=== PATIENT | female | born 1970 | race Caucasian/White ===

== ENCOUNTER 2019-01-12 17:48 | Emergency (ER) | payer OTHER ==
[2019-01-12 18:03] VITALS: BP 153/100; PULSE 105
--- NOTE | 2019-01-12 18:09 | EDM.PDOC ---
ED HPI GENERAL MEDICAL PROBLEM - General Chief Complaint: Lower Extremity Injury/Pain Stated Complaint: RT FOOT INJURY Time Seen by Provider: 01/12/19 18:09 Source of Information: Reports: Patient - History of Present Illness INITIAL COMMENTS - FREE TEXT/NARRATIVE: HISTORY AND PHYSICAL: History of present illness: Patient dropped a brick on her left foot 2 hours prior to arrival she has her own crutches unable to bear weight due to pain no other injury no fever nausea vomiting chills sweats ] There is no abrasion on the dorsum of her foot superficial consistent with injury neurovascularly intact Review of systems: As per history of present illness and below otherwise all systems reviewed and negative. Past medical history: As per history of present illness and as reviewed below otherwise noncontributory. Surgical history: As per history of present illness and as reviewed below otherwise noncontributory. Social history: No reported history of drug or alcohol abuse. Family history: As per history of present illness and as reviewed below otherwise noncontributory. Physical exam: HEENT: Atraumatic, normocephalic, pupils reactive, negative for conjunctival pallor or scleral icterus, mucous membranes moist, throat clear, neck supple, nontender, trachea midline. Lungs: Clear to auscultation, breath sounds equal bilaterally, chest nontender. Heart: S1S2, regular, negative for clicks, rubs, or JVD. Abdomen: Soft, nondistended, nontender. Negative for masses or hepatosplenomegaly. Negative for costovertebral tenderness. Pelvis: Stable nontender. Genitourinary: Deferred. Rectal: Deferred. Extremities: Atraumatic, negative for cords or calf pain. Neurovascular unremarkable. Neuro: Awake, alert, oriented. Cranial nerves II through XII unremarkable. Cerebellum unremarkable. Motor and sensory unremarkable throughout. Exam nonfocal. Diagnostics: [Foot 3 views ] Therapeutics: Toradol 60 IM [ tetanus status is updated Rest ice ibuprofen Neosporin bandaging Tramadol Cam boot crutches nonweightbearing ] Impression: [ left foot injury Superficial abrasion ] Definitive disposition and diagnosis as appropriate pending reevaluation and review of above. Left foot Pain Score (Numeric/FACES): 6 - Related Data Allergies Allergy/AdvReac Type Severity Reaction Status Date / Time Sulfa (Sulfonamide Allergy Vomiting Verified 01/12/19 18:00 Antibiotics) aspirin Allergy Vomiting Uncoded 01/12/19 18:00 sulfa Allergy Vomiting Uncoded 01/12/19 18:00 Home Meds: Home Meds Levothyroxine Sodium [Synthroid] 100 mcg PO DAILY 12/14/15 [History] Past Medical History - Past Health History Medical/Surgical History: Denies Medical/Surgical History HEENT History: Reports: None Cardiovascular History: Reports: None Respiratory History: Reports: None Genitourinary History: Reports: None Other EVENT ORGANIZER History: ceasarian Musculoskeletal History: Reports: None Neurological History: Reports: None Psychiatric History: Reports: None Hematologic History: Reports: None Immunologic History: Reports: None Oncologic (Cancer) History: Reports: None Dermatologic History: Reports: None - Infectious Disease History Infectious Disease History: Reports: None - Past Surgical History GI Surgical History: Reports: Other (See Below) Female Surgical History: Reports: Section Other Endocrine Surgeries/Procedures: thyroid surgery Social & Family History - Family History Family Medical History: Noncontributory - Tobacco Use Smoking Status *Q: Current Every Day Smoker Years of Tobacco use: 30 Packs/Tins Daily: 1 - Recreational Drug Use Recreational Drug Use: No Review of Systems - Review of Systems Review Of Systems: See Below ED EXAM, GENERAL - Physical Exam Exam: See Below Course - Vital Signs Last Recorded V/S: Last Vital Signs Temp 97.4 F 01/12/19 18:01 Pulse 105 H 01/12/19 18:01 Resp 16 01/12/19 18:01 BP 153/100 H 01/12/19 18:01 Pulse Ox 100 01/12/19 18:01 - Orders/Labs/Meds Orders: Active Orders 24 hr Category Date Time Status Vaccines to be Administered [RC] PER UNIT ROUTINE Care 01/12/19 18:15 Active Meds: Medications Discontinued Medications Generic Name Dose Route Start Last Admin Trade Name Freq PRN Reason Stop Dose Admin Diphtheria/Tetanus/Acell Pertussis 0.5 ml 01/12/19 18:15 Adacel IM 01/12/19 18:16 .ONCE ONE Ketorolac Tromethamine 60 mg 01/12/19 18:29 Toradol IM 01/12/19 18:30 ONETIME ONE Departure - Departure Time of Disposition: 19:10 Disposition: Home, Self-Care 01 Condition: Good Clinical Impression: Injury of left foot - Discharge Information Referrals: PCP,Unknown [Primary Care Provider] - Forms: ED Department Discharge Additional Instructions: caM boot crutches nonweightbearing Rest ice ibuprofen bacitracin Telfa dressing standard wound care instruction Medication as prescribed follow up with orthopedist, call phone number below to schedule appropriate follow-up [facility] [address], [address] [place] [address] my orthopedic The following information is given to patients seen in the emergency department who are being discharged to home. This information is to outline your options for follow-up care. We provide all patients seen in our emergency department with a follow-up referral. The need for follow-up, as well as the timing and circumstances, are variable depending upon the specifics of your emergency department visit. If you don't have a primary care physician on staff, we will provide you with a referral. We always advise you to contact your personal physician following an emergency department visit to inform them of the circumstance of the visit and for follow-up with them and/or the need for any referrals to a consulting specialist. The emergency department will also refer you to a specialist when appropriate. This referral assures that you have the opportunity for follow-up care with a specialist. All of these measure are taken in an effort to provide you with optimal care, which includes your follow-up. Under all circumstances we always encourage you to contact your private physician who remains a resource for coordinating your care. When calling for follow-up care, please make the office aware that this follow-up is from your recent emergency room visit. If for any reason you are refused follow-up, please contact the [facility] emergency department at and asked to speak to the emergency department charge nurse. - My Orders Last 24 Hours: My Active Orders 01/12/19 18:15 Vaccines to be Administered [RC] PER UNIT ROUTINE - Assessment/Plan Last 24 Hours: My Active Orders 01/12/19 18:15 Vaccines to be Administered [RC] PER UNIT ROUTINE
[2019-01-12] MEDS ORDERED: Diphtheria,Pertussis(Acell),Tetanus Vaccine 0.5 ML Syringe IM ONE (18:15)
[2019-01-12] MEDS ORDERED: Ketorolac 60 MG/2 ML SDV IM ONE (18:29)
--- NOTE | 2019-01-12 18:44 | CR ---
Indication: Dropped brick on foot. Technique: Three views of the right foot were obtained. Comparison: None Findings: A bipartite lateral sesamoid bone is identified. The joint spaces are well maintained. No acute fracture or subluxation is identified. Impression: No acute fracture. Dictated by Angelika Santana MD @ Jan 12 2019 6:42PM Signed by Dr. Angelika Santana @ Jan 12 2019 6:42PM
== END 2019-01-12 19:16 | disposition home or self-care (01) ==
LOC: MW.ED 17:48
DX: S90.812A Abrasion, left foot, initial encounter (principal); Z88.2 Allergy status to sulfonamides; Z88.6 Allergy status to analgesic agent; W20.8XXA Other cause of strike by thrown, projected or falling object, initial encounter; F17.210 Nicotine dependence, cigarettes, uncomplicated
CPT/HCPCS: 73630-26-RT; 73630-RT; 99283-25